=== PATIENT | female | born 1990 | race Caucasian/White ===

== ENCOUNTER 2016-12-07 23:13 | Emergency (ER) | payer SELFPAY ==
[2016-12-07 23:33] VITALS: BP 137/87; BMI 33.6
--- NOTE | 2016-12-07 23:33 | DR.GENAD ---
HPI - PCP Primary Care Physician: Jammie - HPI Comment HPI Comment: SICK FOR 3 WEEKS. GETTING WORSE. PUS POCKET AT BACK OF THROAT. - Complaint/Symptoms Chief Complaint Doctors Comments: SORE THROAT, COUGH, CURRENTLY ON BACTRIM FOR UTI. Chief Complaint:: " For about 3weeks been having trouble with my throat and i have white puss pockets on my thorat. Went to [place] in [place] and they told me i have a UTI and gave me RX for antibotics. Self Treatment fo Chief Complaint: Bactrim - Nurses notes reviewed Nurses Notes Review: Yes - Source History Provided: Patient - Mode of Arrival Mode of Arrival: Ambulatory - Timing Onset of Chief Complaint: 11/27/16 Came on: Suddenly - Duration Duration: Constant Duration: Weeks - Severity Severity: Moderate PMH - PMH Past Medical History: No Past Surgical History: Yes Surgical History: Other - Family History History of Family Medical Conditions: Yes Family Medical History: Diabetes Mellitus, Hypertension - Social History Do you use any recreational Drugs:: No - infectious screening Have you traveled outside the country in the last 6 months?: No ROS - Review of Systems Constitutional: Fever Eyes: No Symptoms Reported ENTM: Throat Pain. negative: Ear Pain, Nose Discharge, Nose Congestion Respiratoy: Non-Productive Cough. negative: Short of Breath, Wheezing, Hemoptysis Cardiovascular: No Symptoms Reported Gastrointestinal/Abdominal: No Symptoms Reported Genitourinary: No Symptoms Reported Neurological: Headache Musculoskeletal: Muscle Pain Integumentary: No Symptoms Reported Hematologic/Lymphatic: No Symptoms Reported Endocrine: No Symptoms Reported All Other Systems: Reviewed and Negative PE - Vital Signs Vitals: Temperature 97.8 F Pulse Rate 89 Respiratory Rate 18 Blood Pressure 137/87 O2 Sat by Pulse Oximetry 100 - General Limitations: No Limitations General Appearance: Alert - Head Head Exam: Normal Inspection - Eyes Eye exam: Normal Appearance - ENT ENT Exam: Normal External Ear Exam External Ear Exam: Normal External Inspection TM/Canal Exam: Bilateral Normal Nose Exam: Normal Nose Exam Mouth Exam: Normal Inspection Throat Exam: Tonsillar Erythema, Tonsillomegaly, Tonsillar Exudate - Neck Neck Exam: Lymphadenopathy. negative: Tenderness, Meningismus - Chest Chest Inspection: Symmetric Chest Wall Rise - Respiratory Respiratory Exam: Normal Lung Sounds Bilat Respiratory Exam: Bilateral Rhonchi, Lower Rhonchi - Cardiovascular Cardiovascular Exam: Regular Rate, Normal Rhythm, Normal Heart Sounds - Abdominal Exam Abdominal Exam: Normal Bowel Sounds, Soft. negative: Tenderness - Extremities Extremities Exam: Normal Inspection - Back Back Exam: Normal Inspection - Neurologic Neurological Exam: Alert, Oriented X3 - Psychiatric Psychiatric Exam: Normal Affect - Skin Skin Exam: Normal Color MDM - Additional Information Additional Information Obtained From: Family - Differential Diagnosis Differential Diagnosis: STREP THROAT, MONO, BRONCHITIS Course - Treatment Treatment: SEE ORDERS - Education/Counseling Education/Counseling: Patient, Family, Education Educated On: Diagnosis, Needs for Follow Up ROR - Labs Reviewed Laboratory Results Reviewed?: Yes Laboratory: Monoscreen Positive (NEGATIVE) A 12/07/16 23:49 Streptococcus Screen Positive (NEGATIVE) A 12/07/16 23:25 - XRAY XRAY Interpreted by: Radiologist XRAY Findings: REPORT DISCUSS WITH PATIENT. - Diagnosis Discharge Problem: Strep throat, Mononucleosis, Bronchitis - Discharge Plan Disposition: HOME, SELF-CARE Condition: Stable - Follow ups/Referrals Follow ups/Referrals: PÉREZ ACOSTA [Primary Care Provider] - 3 days - Instructions Instructions: Strep Throat, Infectious Mononucleosis, Acute Bronchitis, Easy-to -Read Additional Instructions: RETURN TO ED IF WORSE
[2016-12-08 00:08] LABS: MONOTEST POSITIVE (NEGATIVE)
--- NOTE | 2016-12-08 00:13 | RAD ---
EXAM: Chest X-ray INDICATION: Cough COMPARISION: No prior TECHNIQUE: AP, single view FINDINGS: The lungs are clear in the lung volumes are within normal limits. No pleural effusion or pneumothora x. The cardiac silhouette and mediastinum are normal. The regional skeleton is intact. IMPRESSION: Normal Chest X-Ray Reported By:
[2016-12-08] MEDS ORDERED: DECADRON INJ IM ONE (00:22)
[2016-12-08] MEDS ORDERED: BICILLIN L-A IM ONE ×2 (00:22→00:25)
[2016-12-08] MEDS ORDERED: TORADOL 60 MG VIAL IM ONE (00:22)
[2016-12-08] MEDS ORDERED: TORADOL 60 MG VIAL ONE (00:24)
[2016-12-08] MEDS ORDERED: DECADRON INJ ONE (00:25)
== END 2016-12-08 00:51 | disposition home or self-care (01) ==
LOC: ER 23:13
DX: J40 Bronchitis, not specified as acute or chronic (principal); B27.90 Infectious mononucleosis, unspecified without complication; J02.0 Streptococcal pharyngitis
CPT/HCPCS: 71010; 86308; 87880; 96372; 99282; 99283; J0570; J1100; J1885

== ENCOUNTER 2016-12-10 06:05 | Emergency (ER) | payer SELFPAY ==
[2016-12-10 06:12] VITALS: BMI 33.6
[2016-12-10 06:25] VITALS: BP 139/91
--- NOTE | 2016-12-10 06:35 | DR.GENAD ---
HPI - PCP Primary Care Physician: KARLA - Complaint/Symptoms Chief Complaint:: "I'M NOT GETTING ANY BETTER. I WAS HERE THURSDAY NIGHT DIAGNOSED WITH STREPT THROAT , MONO. I CAN'T SWALLOW, MY BACK HURTS, MY NECK HURTS." Self Treatment fo Chief Complaint: RECIEVED BICILLIN IN ER, AND SEVERAL OTHER SHOTS - Nurses notes reviewed Nurses Notes Review: Yes - Source History Provided: Patient - Mode of Arrival Mode of Arrival: Ambulatory - Timing Onset of Chief Complaint: 11/26/16 Came on: Gradually - Duration Duration: Constant How lon Duration: Days - Location Location: throat - Severity Severity: Moderate - Modifying Factors Worsens:: swollowing PMH - PMH Past Medical History: Yes Past Medical History Comment: MONO Past Surgical History: Yes Surgical History: Other - Family History History of Family Medical Conditions: Yes Family Medical History: Diabetes Mellitus, Hypertension - Social History Does patient currently use any type of tobacco product: No Have you used tobacco products in the last 12 months: No Type of Tobacco Use: None Does any household member use tobacco: No Alcohol Use: None Do you use any recreational Drugs:: No Lives With: Family Lives Where: Home - infectious screening Have you traveled outside the country in the last 6 months?: No Isolation: Standard ROS - Review of Systems Constitutional: No Symptoms Reported Eyes: No Symptoms Reported ENTM: Throat Pain Respiratoy: No Symptoms Reported Cardiovascular: No Symptoms Reported Gastrointestinal/Abdominal: No Symptoms Reported Genitourinary: No Symptoms Reported Neurological: No Symptoms Reported Musculoskeletal: No Symptoms Reported Integumentary: No Symptoms Reported Hematologic/Lymphatic: No Symptoms Reported Endocrine: No Symptoms Reported Psychiatric: No Symptoms Reported All Other Systems: Reviewed and Negative PE - Vital Signs Vitals: Temperature 98.6 F Pulse Rate [Left Brachial] 108 Pulse Rate 113 Respiratory Rate 20 Blood Pressure [Left Arm] 139/91 Blood Pressure 135/100 O2 Sat by Pulse Oximetry 98 - General Limitations: No Limitations General Appearance: Alert, In No Apparent Distress - Head Head Exam: Normal Inspection - Eyes Eye exam: Normal Appearance, EOMI. negative: Scleral Icterus, Conjunctival Injection - ENT ENT Exam: negative: Normal Oropharynx External Ear Exam: Normal External Inspection Mouth Exam: negative: Drooling, Trismus, Lip Swelling, Tongue Elevation, Tongue Swelling Throat Exam: Tonsillar Erythema, Tonsillar Exudate. negative: Normal Inspection - Neck Neck Exam: Normal Inspection, Full ROM, Trachea Midline - Chest Chest Inspection: Normal Inspection - Respiratory Respiratory Exam: Normal Lung Sounds Bilat. negative: Accessory Muscle Use, Respiratory Distress - Cardiovascular Cardiovascular Exam: Tachycardia - Extremities Extremities Exam: Normal Inspection, Full ROM - Neurologic Neurological Exam: Alert, Oriented X3, CN II-XII Intact - Psychiatric Psychiatric Exam: Normal Mood - Skin Skin Exam: Intact, Normal Color ROR - Labs Reviewed Laboratory: Specimen Type Clean catch urine 12/10/16 07:37 Urine Color Yellow (YELLOW) 12/10/16 07:37 Urine Appearance Hazy (CLEAR) 12/10/16 07:37 Urine pH 6.0 (5.0 - 8.0) 12/10/16 07:37 Ur Specific Nelson 1.015 (1.000-1.030) 12/10/16 07:37 Urine Protein Negative (NEGATIVE) 12/10/16 07:37 Urine Glucose (UA) Negative (NEGATIVE) 12/10/16 07:37 Urine Ketones Negative (NEGATIVE) 12/10/16 07:37 Urine Occult Blood 5+ (NEGATIVE) 12/10/16 07:37 Urine Nitrite Negative (NEGATIVE) 12/10/16 07:37 Urine Bilirubin Negative (NEGATIVE) 12/10/16 07:37 Urine Urobilinogen Normal (NORMAL) 12/10/16 07:37 Ur Leukocyte Esterase 2+ (NEGATIVE) 12/10/16 07:37 Urine RBC 15-20 /HPF (NEGATIVE) 12/10/16 07:37 Urine WBC 4-8 /HPF (NEGATIVE) 12/10/16 07:37 Ur Squamous Epith Cells Many /HPF (NEGATIVE) 12/10/16 07:37 Urine Bacteria Trace /HPF (NEGATIVE) 12/10/16 07:37 Ur Culture Indicated? No/not indicated 12/10/16 07:37 - Diagnosis Discharge Problem: Mononucleosis - Discharge Plan Condition: Stable Prescriptions: Lidocaine/Benadryl/Maalox [Magic Mouthwash] 10 ml MT TID PRN #180 ml PRN Reason: MOUTH/THROAT PAIN Ondansetron [Zofran Odt] 4 mg PO Q8H PRN #12 tab PRN Reason: Nausea/Vomiting - Follow ups/Referrals Follow ups/Referrals: PÉREZ ACOSTA [Primary Care Provider] - 3 days - Instructions Instructions: Infectious Mononucleosis
[2016-12-10] MEDS ORDERED: NS 500 ML IV 1,000 ML IV ONE (06:38)
[2016-12-10] MEDS ORDERED: MAGIC MOUTHWASH MT ONE (06:39)
[2016-12-10] MEDS ORDERED: ROCEPHIN VIAL 1 GM IV ONE (06:43)
[2016-12-10] MEDS ORDERED: SOLU-Medrol 125 MG VIAL IVP ONE (06:43)
[2016-12-10] MEDS ORDERED: NS 1000 ML 1,000 ML ONE (06:49)
[2016-12-10] MEDS ORDERED: ROCEPHIN 1 GM IV PREMIX * OUT OF STOCK 50 ML IV ONE (06:49)
[2016-12-10] MEDS ORDERED: SOLU-Medrol 125 MG VIAL ONE (06:49)
[2016-12-10 07:46] LABS: BILIRUBIN,URINE NEGATIVE (NEGATIVE); BLOOD/HEMOGLOBIN,URINE 5+ (NEGATIVE); GLUCOSE, URINE NEGATIVE (NEGATIVE); KETONES,URINE NEGATIVE (NEGATIVE); LEUKOCYTE ESTERASE ,URINE 2+ (NEGATIVE); NITRITES,URINE NEGATIVE (NEGATIVE); PROTEIN,URINE NEGATIVE (NEGATIVE); UROBILINOGEN,URINE NORMAL (NORMAL)
[2016-12-10 07:54] LABS: APPEARANCE,URINE HAZY (CLEAR); BACTERIA,URINE TRACE /HPF (NEGATIVE); COLOR,URINE YELLOW (YELLOW); RBC,URINE 15-20 /HPF (NEGATIVE); SQUAMOUS EPITHELIAL CELL,UR MANY /HPF (NEGATIVE)
--- NOTE | 2016-12-10 08:28 | CT ---
HISTORY: Strep an mononucleosis positive, dysphagia Study: CT soft tissue neck without contrast Comparison: None Technique: Axial non contrast images with coronal and sagittal reformats. Dose reduction procedures were used with MA/kv adjusted for body size. The lack of intravenous contrast significantly limits t his examination. Findings: The parotid and submandibular glands are symmetric and normal. No definite nasopharyngeal abnormalit y is identified. There is marked tonsillar enlargement bilaterally contributing along with uvular ed elie to melina pharyngeal airway narrowing at the level of the enlarged tonsils. Airway diameter is as l ow as 6 millimeters. The epiglottis is normal. There is no definite visible peritonsillar abscess, h owever, peritonsillar abscess cannot be entirely excluded on a non contrast examination. The pirifor m sinuses are clear. No laryngeal abnormality is identified. The thyroid gland is normal to the limi tations of an unenhanced examination. No supraclavicular or upper mediastinal lymphadenopathy is maggie ntified. Those portions of the upper lung rich visualized were clear. No significant skeletal abno rmality is identified. The sinuses are clear. Markedly enlarged anterior and posterior cervical clementina n lymph nodes are present bilaterally. IMPRESSION: Limited examination due to the lack of intravenous contrast Markedly enlarged tonsils bilaterally which contributes along with uvular edema to narrowing of the melina pharyngeal airway at the mid tonsillar level to a diameter of 6 millimeters No definite evidence for peritonsillar abscess however peritonsillar abscess cannot be entirely excl uded on a non contrast examination. Bilateral anterior and posterior cervical chain lymphadenopathy likely reactive Reported By:
== END 2016-12-10 09:10 | disposition home or self-care (01) ==
LOC: ER 06:05
DX: R59.1 Generalized enlarged lymph nodes (principal); B27.90 Infectious mononucleosis, unspecified without complication
CPT/HCPCS: 70490; 81001; 96365; 96374; 96375; 99283; A4222; J0696; J2930